=== PATIENT | male | born 2000 | race Caucasian/White ===

== ENCOUNTER 2021-04-07 13:20 | Emergency (ER) | payer OTHER ==
[~2021-04-07] VITALS: Ht 184.2 cm; Wt 100.2 kg
[2021-04-07 13:24] VITALS: BP 135/80
--- NOTE | 2021-04-07 13:25 | NUR ---
Patient ambulated to bed 12 with steady/even gait.
--- NOTE | 2021-04-07 13:54 | NUR ---
20 y/o M brought in from home with c/c low back pain s/p landing on his back while playing soccer. Patient A&Ox4, ambulatory, states yesterday at 2PM he was playing soccer, jumped up and landed on his back. Patient states progressively worsen since injury. Patient reports no pain at this time, however, states pain is intermittent and is 8/10, sharp/constant, non-radiating. Pain comes and worsens when going from laying to standing position. Patient states Ibuprofen prior to arrival with mild relief. Denies LOC, head trauma, neck pain, dizziness, numbness/tingling to other extremities. Bed locked in lowest position, side rails x 1, call light in reach. PMH/Sx/Meds: Denies Allergies: PCN
[2021-04-07] MEDS ORDERED: KETOROLAC 30 MG/ML VIAL IM ONE (14:20)
--- NOTE | 2021-04-07 14:38 | NUR ---
Pt to RAD via wheelchair.
[2021-04-07] MEDS ORDERED: LIDO1ADH47 TP (15:03)
[2021-04-07] MEDS ORDERED: METH750T5 PO (15:03)
[2021-04-07] MEDS ORDERED: NAPR-54 PO (15:03)
[2021-04-07 15:20] VITALS: BP 135/80
--- NOTE | 2021-04-07 15:21 | NUR ---
Patient discharged with v/s stable. Written and verbal after care instructions given and explained. Patient alert, oriented and verbalized understanding of instructions. Ambulatory with steady gait. All questions addressed prior to discharge. ID band removed. Patient advised to follow up with PMD. Rx of LIDOCAINE, METHOCARBAMOL, NAPROXEN given. Patient educated on indication of medication including possible reaction and side effects. Opportunity to ask questions provided and answered.
== END 2021-04-07 15:21 | disposition home or self-care (01) ==
LOC: MED 13:20
DX: M54.9 Dorsalgia, unspecified (principal); Z79.899 Other long term (current) drug therapy; Z88.0 Allergy status to penicillin; W19.XXXA Unspecified fall, initial encounter; Y93.66 Activity, soccer; Y92.89 Other specified places as the place of occurrence of the external cause; Y99.8 Other external cause status
CPT/HCPCS: 72110; 96372; 99283; J1885

== ENCOUNTER 2022-02-11 22:57 | Observation (INO) | payer OTHER ==
[~2022-02-11] VITALS: Ht 185.4 cm; Wt 95.3 kg
[~2022-02-11 22:57] MED LIST: LIDO1ADH47 TP; METH750T5 PO; NAPR-54 PO
[2022-02-11 23:04] VITALS: BP 108/68
--- NOTE | 2022-02-11 23:11 | NUR ---
Patient ambulated to bed 3 and change to a gown.
[2022-02-11] MEDS ORDERED: NACL 0.9% 1,000 ML IV SCH (23:50)
[2022-02-11] MEDS ORDERED: ONDANSETRON 4 MG/2 ML VIAL IVP ONE (23:50)
[2022-02-11] MEDS ORDERED: KETOROLAC 30 MG/ML VIAL IVP ONE (23:50)
[2022-02-12 00:13] LABS: BASOPHILS % (AUTO) 0.1 % (0.0-2.0); HEMATOCRIT 46.5 % (36-52); HEMOGLOBIN 15.3 g/dL (12.0-18.0); LYMPHOCYTES # (AUTO) 0.4 K/uL (2.0-11.5); MEAN CORPUSCULAR HEMOGLOBIN 27 pg (27-31); MEAN CORPUSCULAR HGB CONC 33 g/dL (33-37); MEAN CORPUSCULAR VOLUME 81.2 fL (80-94); MONOCYTES # (AUTO) 0.1 K/uL (0.8-1.0); MONOCYTES % (AUTO) 0.8 % (1.7-9.3); NEUTROPHILS # (AUTO) 12.7 K/uL (1.8-7.7); NEUTROPHILS % (AUTO) 96.1 % (42.2-75.2); PLATELET COUNT (AUTO) 211 K/uL (140-450); RED BLOOD CELL COUNT(AUTO) 5.73 MIL/uL (4.20-6.10); RED CELL DISTRIBUTION WIDTH 14.5 % (11.6-13.7); WHITE BLOOD COUNT (AUTO) 13.2 K/uL (4.5-11.0)
[2022-02-12] MEDS ORDERED: NACL 0.9% 1,000 ML IV ONE ×2 (00:25→01:50)
[2022-02-12 00:42] LABS: ALBUMIN 4.2 g/dL (3.4-5.0); ANION GAP 14.6 (8-16); CARBON DIOXIDE 27.6 mmol/L (21-32); CREATININE 0.9 mg/dL (0.6-1.3); POTASSIUM 3.2 mmol/L (3.5-5.1); TOTAL BILIRUBIN 1.6 mg/dL (0.0-1.0)
[2022-02-12] MEDS ORDERED: MORPHINE SULFATE 4 MG/ML SYR IVP ONE (01:50)
[2022-02-12] MEDS ORDERED: cefTRIAXone 1,000 MG VIAL ONE (01:55)
--- NOTE | 2022-02-12 03:04 | NUR ---
REPORT TO POUND KEEPER (NAJMA) GIVEN. PT IS TO BE ADMITTED TO OBSERVATION UNIT.
[2022-02-12] MEDS ORDERED: MORPHINE SULFATE 4 MG/ML SYR IVP PRN (04:00)
[2022-02-12] MEDS ORDERED: ONDANSETRON 4 MG/2 ML VIAL IVP PRN ×2 (04:00→11:10)
[2022-02-12] MEDS ORDERED: KCL 20 MEQ/WATER INJ PREMIX 200 ML IV PRN (04:00)
[2022-02-12] MEDS ORDERED: MAGNESIUM OXIDE 400 MG TAB PO PRN (04:00)
[2022-02-12] MEDS ORDERED: ACETAMINOPHEN 325 MG TAB PO PRN (04:00)
[2022-02-12] MEDS ORDERED: HYDROcodone/APAP 5/325 MG 1 TAB TAB PO PRN (04:00)
[2022-02-12] MEDS ORDERED: MAG SULF 2000 MG/WATER PREMIX 50 ML IV PRN (04:00)
[2022-02-12] MEDS ORDERED: POTASSIUM CHLORIDE 10 MEQ TABER PO PRN (04:00)
--- NOTE | 2022-02-12 04:40 | NUR ---
Patient will be admitted to care of DR. ADRIEN HWANG. Admited to OBSERVATION. Will go to room 105A. Belongings list completed. Report to NURIS.
--- NOTE | 2022-02-12 04:50 | NUR ---
PATIENT WAS BROUGHT TO MST UNIT FROM ER VIA WHEELCHAIR. AAOX4 , AMBULATORY ON ROOM AIR. NO ACUTE DISTRESS. WALKED TO THE BED FROM WHEELCHAIR WITHOUT ASSISTANCE. NO COMPLAINTS OF PAIN AT THIS TIME. SAFETY MEASURES IN PLACE. CALL LIGHT WITHIN REACH. MRSA SCREENING DONE. REMINDED PATIENT TO STAY NPO.
--- NOTE | 2022-02-12 04:52 | NUR ---
PT HAS BEEN NPO SINCE ARRIVAL
--- NOTE | 2022-02-12 07:24 | NUR ---
ENDORSED TO AM NURSE FOR CONTINUITY OF CARE. PATIENT IS STABLE.
[2022-02-12] MEDS ORDERED: LIDOCAINE 1% 500 MG/50 ML VIAL ONE (07:37)
[2022-02-12] MEDS ORDERED: BUPIVACAINE-MPF/EPI 0.25% 30 ML VIAL INJ ONE (07:37)
[2022-02-12 08:00] VITALS: BP 125/71
--- NOTE | 2022-02-12 08:24 | NUR ---
RECEIVED ENDORSEMENT FROM PM SHIFT NURSE FOR PRE-OPERATION PATIENT. SALINE LOCK LAC 18G INTACT. LAPAROSCOPE APPENDECTOMY PROCEDURE SCHEDULE SET FOR THIS MORNING. PT NPO, PROCEDURE CONSENT SIGNED. WILL CONTINUE TO MONITOR.
--- NOTE | 2022-02-12 08:39 | NUR ---
PATIENT HAS BEEN SCREENED AND CATEGORIZED LOW NUTRITION RISK. PATIENT WILL BE SEEN WITHIN 7 DAYS OF ADMISSION. 02/18/[address]
[2022-02-12] MEDS: NACL 0.9% 1,000 ML IV SCH ×2 (08:43→16:30)
[2022-02-12] MEDS: metroNIDAZOLE 500 MG/NS PREMIX 100 ML IV SCH ×3 (08:44→20:50)
[2022-02-12] MEDS ORDERED: BUPIVACAINE-MPF 0.25% 30 ML VIAL INJ ONE (09:20)
--- NOTE | 2022-02-12 09:22 | NUR ---
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 PIV LAC 18G INFUSING. WILL CONTINUE TO MONITOR
[2022-02-12] MEDS ORDERED: SEVOFLURANE 250 ML BTL INH ONE (09:30)
[2022-02-12] MEDS ORDERED: MIDAZOLAM 5 MG/5 ML VIAL ONE (09:38)
[2022-02-12] MEDS ORDERED: fentaNYL citrate 0.05 MG/ML VIAL ONE ×2 (09:38→10:17)
[2022-02-12] MEDS ORDERED: LIDOCAINE 2% 100 MG/5 ML SYR IVP ONE (09:40)
[2022-02-12] MEDS ORDERED: ROCURONIUM 50 MG/5 ML VIAL IV ONE (09:52)
[2022-02-12] MEDS ORDERED: METOCLOPRAMIDE 10 MG/2 ML INJ VIAL ONE (09:53)
[2022-02-12] MEDS ORDERED: DEXAMETHASONE 4 MG/ML VIAL ONE ×2 (09:53)
[2022-02-12] MEDS ORDERED: PROPOFOL 200 MG/20 ML VIAL IV ONE (09:53)
[2022-02-12] MEDS ORDERED: SUCCINYLCHOLINE CHLORIDE 200 MG/10 ML VIAL IVP ONE (10:02)
[2022-02-12] MEDS ORDERED: LEVOFLOXACIN 500 MG/D5W PREMIX 100 ML IV ONE (10:22)
[2022-02-12] MEDS ORDERED: SUGAMMADEX SODIUM 200 MG/2 ML VIAL IV ONE (10:39)
[2022-02-12] MEDS ORDERED: KETOROLAC 60 MG/2 ML VIAL IM ONE (10:49)
[2022-02-12] MEDS ORDERED: ONDANSETRON 4 MG/2 ML VIAL ONE (10:55)
[2022-02-12] MEDS ORDERED: HYDROmorphone 1 MG/ML AMP IVP PRN (11:10)
[2022-02-12] MEDS ORDERED: MEPERIDINE 25 MG/ML SYR IVP PRN (11:10)
[2022-02-12] MEDS ORDERED: HYDROmorphone 1 MG/ML AMP IM/IV PRN (11:25)
[2022-02-12 12:00] VITALS: BP 117/73
[2022-02-12] MEDS: LACTATED RINGERS 1,000 ML IV SCH ×2 (12:00→19:30)
[2022-02-12 16:00] VITALS: BP 114/61
--- NOTE | 2022-02-12 16:13 | NUR ---
DC PLANN[age] YRS OLD MALE PATIENT WAS ADMITTED FROM HOME WITH A DX OF ACUTE APPENDICITIS. PATIENT HAS NO MEDICAL HISTORY. CT ABD/PELVIS SHOWED EARLY ACUTE APPENDICITIS. ADMINISTERED IVF, IV ABX ROCEPHIN. DR BALDERRAMA PERFORMED LAP APPY. PATIENT TOLERATED WELL. DC PLAN TO GO HOME WHEN STABLE. CM TO FOLLOW
--- NOTE | 2022-02-12 19:14 | NUR ---
ENDORSE PATIENT TO PM SHIFT NURSE WITH PATIENT IN STABLE CONDITION; PIV LAC PATENT, IV INFUSING, FAMILY AT BEDSIDE
--- NOTE | 2022-02-12 19:30 | NUR ---
RECEIVED BEDSIDE REPORT FROM DAY SHIFT RN FOR CONTINUITY OF CARE. PT IS AWAKE IN BED. PT IS NOT IN ANY DISTRESS. BREATHING RHYTHMIC AND UNLABORED. PT IS ON RA SATING 97%. IVF RUNNING PER MD ORDER. PT HAS 3 INCISIONAL SITES ON ABD. NO COMPLAINS FROM THE PT AT THIS TIME. CALL LIGHT WITHIN REACH. ALL SAFETY MEASURES TAKEN. WILL CONTINUE TO MONITOR THE PT.
[2022-02-12 20:00] VITALS: BP 106/64
--- NOTE | 2022-02-12 20:55 | NUR ---
ALL DUE MEDS GIVEN. NO ADVERSE REACTION NOTED. WILL CONTINUE TO MONITOR THE PT.
--- NOTE | 2022-02-13 | NUR ---
PT IS SLEEPING IN BED COMFORTABLY. PT IS NOT IN ANY DISTRESS. BREATHING EVEN AND UNLABORED. IVF RUNNING PER MD ORDER. CALL LIGHT WITHIN REACH. ALL SAFETY MEASURES TAKEN. WILL CONTINUE TO MONITOR THE PT.
--- NOTE | 2022-02-13 02:07 | NUR ---
PT IS AWAKE IN BED. PT IS NOT IN ANY DISTRESS. PT WAS HELPED TO THE RESTROOM. STEADY GAIT. NO FURTHER COMPLAINS FROM THE PT. ALL SAFETY MEASURES TAKEN. WILL CONTINUE TO MONITOR THE PT.
[2022-02-13 04:00] VITALS: BP 113/65
[2022-02-13] MEDS: metroNIDAZOLE 500 MG/NS PREMIX 100 ML IV SCH ×2 (04:38→13:38)
[2022-02-13] MEDS: NACL 0.9% 1,000 ML IV SCH ×2 (04:39→18:13)
--- NOTE | 2022-02-13 04:45 | NUR ---
ALL DUE MEDS GIVEN. NO ADVERSE REACTION NOTED. WILL CONTINUE TO MONITOR THE PT.
[2022-02-13 06:20] LABS: BASOPHILS % (AUTO) 0.1 % (0.0-2.0); EOSINOPHILS # (AUTO) 0.1 K/uL (0-0.4); EOSINOPHILS % (AUTO) 0.5 % (0.0-4.0); HEMATOCRIT 38.5 % (36-52); HEMOGLOBIN 12.5 g/dL (12.0-18.0); LYMPHOCYTES # (AUTO) 0.8 K/uL (2.0-11.5); LYMPHOCYTES % (AUTO) 5.9 % (20.5-51.1); MEAN CORPUSCULAR HEMOGLOBIN 27 pg (27-31); MEAN CORPUSCULAR HGB CONC 33 g/dL (33-37); MEAN CORPUSCULAR VOLUME 81.8 fL (80-94); MONOCYTES # (AUTO) 0.7 K/uL (0.8-1.0); MONOCYTES % (AUTO) 5.6 % (1.7-9.3); NEUTROPHILS # (AUTO) 11.7 K/uL (1.8-7.7); NEUTROPHILS % (AUTO) 87.9 % (42.2-75.2); PLATELET COUNT (AUTO) 150 K/uL (140-450); RED BLOOD CELL COUNT(AUTO) 4.71 MIL/uL (4.20-6.10); WHITE BLOOD COUNT (AUTO) 13.3 K/uL (4.5-11.0)
[2022-02-13 06:27] LABS: ALBUMIN 2.8 g/dL (3.4-5.0); ANION GAP 10.3 (8-16); CARBON DIOXIDE 26.2 mmol/L (21-32); CREATININE 0.8 mg/dL (0.6-1.3); MAGNESIUM 1.9 mg/dL (1.8-2.4); POTASSIUM 3.5 mmol/L (3.5-5.1); TOTAL BILIRUBIN 0.5 mg/dL (0.0-1.0)
--- NOTE | 2022-02-13 07:20 | NUR ---
ENDORSED PT TO DAY SHIFT RN FOR CONTINUITY OF CARE. PT IS STABLE.
[2022-02-13 08:00] VITALS: BP 128/76
--- NOTE | 2022-02-13 09:03 | NUR ---
RECEIVED ENDORSEMENT FROM PM SHIFT NURSE WITH PATIENT IN STABLE CONDITION. JOEL IBRAHIM PATENT. WILL CONTINUE TO MONITOR Addendum: 02/13/22 at 0908 by Conchita Liu RN WRONG CHART FOR ABOVE. RECEIVED ENDORSEMENT FROM PM SHIFT NURSE WITH PATIENT IN STABLE CONDITION. JOEL MONTE PATENT. INFORMED DR. LYNN THAT PATIENT HAS DM, AND IV FLUID D5NS HAS SUGAR PER PM NURSE ENDORSEMENT. DR. LYNN STATE THAT IS OKAY BECAUSE PATIENT HAS NOT EAT GOOD FOR FEW DAYS. WILL CONTINUE TO MONITOR Addendum: 02/13/22 at 0910 by Conchita Liu RN SECOND MESSAGE IS FOR DIFFERENT PATIENT. RECEIVED ENDORSEMENT FROM PM SHIFT NURSE WITH PATIENT IN STABLE CONDITION. JOEL IBRAHIM PATENT. WILL CONTINUE TO MONITOR
[2022-02-13] MEDS ORDERED: MORPHINE SULFATE 2 MG/ML SYR IVP PRN (11:15)
[2022-02-13] MEDS ORDERED: IBUP-1842 PO (14:03)
[2022-02-13 16:00] VITALS: BP 132/81
--- NOTE | 2022-02-13 19:30 | NUR ---
D/C PATIENT IN STABLE CONDITION W/ IV & ARM BAND REMOVED. PT STABLE, CONSENT SIGNED
== END 2022-02-13 19:30 | disposition home or self-care (01) ==
LOC: MED 22:57 → MMU 02-12 04:04 → MTU 02-12 04:27
PROVIDERS: ADMIT Internal Medicine; ATTEND Internal Medicine
DX: K35.80 Unspecified acute appendicitis (principal); Z20.822 Contact with and (suspected) exposure to COVID-19; R11.2 Nausea with vomiting, unspecified; Z88.0 Allergy status to penicillin
CPT/HCPCS: 36415; 44970; 74177; 80053; 82374; 83605; 83690; 83735; 85025; 87040; 87081; 87186; 87426; 96361; 96365; 96366; 96367; 96375; 99291; G0378; J0330; J0696; J1100; J1885; J1956; J2001; J2250; J2405; J2704; J2765; J3010; J3490; J7030; J7060; Q9967; 88304; J2270